=== PATIENT | male | born 1965 | race Caucasian/White ===

== ENCOUNTER → 2016-08-09 | Outpatient (CLI) | payer BC | LOC: GMA 11:52 | PROVIDERS: ATTEND Nurse Practitioner Acute Care | DX: E29.9 Testicular dysfunction, unspecified (principal); R53.83 Other fatigue ==

== ENCOUNTER → 2018-05-29 | Outpatient (CLI) | payer BC | LOC: GMAM 16:55 | PROVIDERS: ATTEND Family Medicine | DX: Z12.5 Encounter for screening for malignant neoplasm of prostate (principal) ==

== ENCOUNTER → 2018-09-19 | Outpatient (CLI) | payer BC | LOC: GMAM 10:31 | PROVIDERS: ATTEND Family Medicine | DX: E29.9 Testicular dysfunction, unspecified (principal) ==

== ENCOUNTER 2020-01-06 18:17 | Emergency (ER) | payer BC ==
[2020-01-06] MEDS ORDERED: GLUCAGON INJ 1 MG VIAL IV ONE (18:32)
[2020-01-06] MEDS ORDERED: SODIUM CHLORIDE 0.9% 500ML 500 ML IVS PRN (18:32)
[2020-01-06] MEDS ORDERED: ONDANSETRON INJ 4 MG/2 ML VIAL IV ONE (18:32)
--- NOTE | 2020-01-06 18:57 | ED.PDOC ---
History of Present Illness - General Time Seen by Provider: 01/06/20 18:31 Information Source: patient, RN notes reviewed, Vital Signs reviewed Exam Limitations: no limitations - History of Present Illness Initial Comments: This is a 54-year-old male with history of hypertension, type 2 diabetes, presenting to the emergency department for esophageal obstruction due to food bolus. He states he was eating steak around noon today and felt a piece of steak get stuck. He has been unable to pass any solids or liquids since that time. He denies any cough, shortness of breath, or choking episodes. He had a similar episode approximately 10 to 12 years ago and had to go to the GI lab. He denies any history of esophageal strictures. Review of Systems - Review of Systems Constitutional: Denies: chills, fever EENTM: Denies: tearing, ear pain, throat pain, mouth pain Respiratory: Denies: cough, orthopnea, short of breath, stridor Cardiology: Denies: chest pain, edema Gastrointestinal/Abdominal: Denies: constipation, diarrhea, nausea, vomiting Genitourinary: Denies: dysuria, hematuria Musculoskeletal: Denies: joint pain, muscle pain Neurological: Denies: headache, paresthesia Endocrine: States: no symptoms reported Hematologic/Lymphatic: States: no symptoms reported Past Medical History (General) - Patient Medical History Hx Seizures: No Hx Stroke: No Hx Dementia: No Hx Asthma: No Hx of COPD: No Hx Cardiac Disorders: No Hx Congestive Heart Failure: No Hx Pacemaker: No Hx Hypertension: Yes Hx Thyroid Disease: No Hx Diabetes: Yes Hx Gastroesophageal Reflux: No Hx Renal Disease: No Hx Cancer: No Hx of HIV: No Hx Hepatitis C: No Hx MRSA: No Surgical History: no surgical history - Vaccination History Hx Tetanus, Diphtheria Vaccination: No Hx Influenza Vaccination: No Hx Pneumococcal Vaccination: No Immunizations Up to Date: No - Social History Hx Tobacco Use: No Hx Chewing Tobacco Use: No Hx Alcohol Use: No Hx Substance Use: No Hx Substance Use Treatment: No Hx Depression: No Feels Threatened In Home Enviroment: No Feels Threatened In a Relationship: No Hx Physical Abuse: No Hx Emotional Abuse: No Hx Suspected Abuse: No - Female History Patient is a Female of Child Bearing Age (10 -59 yrs old): No Family Medical History - Family History Father Family History: Unknown Physical Exam - Physical Exam General Appearance: Alert, Comfortable, Well Developed, Well Groomed, Well Hydrated, Well Nourished, Other - Actively spitting saliva into emesis bag Eyes, Ears, Nose, Throat Exam: PERRL/EOMI, normal ENT inspection, pharynx normal Neck: non-tender, full range of motion, supple Respiratory: lungs clear, normal breath sounds, no respiratory distress, no accessory muscle use Cardiovascular/Chest: normal peripheral pulses, regular rate, rhythm, no edema, no gallop, no murmur Peripheral Pulses: No deficit Gastrointestinal/Abdominal: normal bowel sounds, non tender, soft Extremity: normal range of motion, non-tender, normal inspection Neurologic: no motor/sensory deficits, alert, normal mood/affect, oriented x 3 Skin Exam: normal color, warm/dry Progress - Progress Progress: 01/06/20 20:02 Rechecked. Patient reports persistent globus sensation, still unable to tolerate liquids despite multiple attempts in the emergency department. No improvement after nitroglycerin or glucagon 01/06/20 20:11 Discussed the case with Dr. Richardson, wood milling machine operator at [facility] in [place]. Agrees with plan for transfer, will see when he arrives there. 01/06/20 20:17 Patient was accepted as a transfer to the emergency department by Dr. Leung. Will be transferred by private vehicle (per patient request) to [facility]. DDX: Esophageal obstruction due to food bolus, esophageal stricture, diabetes MDM: Esophageal obstruction due to food bolus, onset approximately 8 hours ago. Unable to pass liquids, but seems to be tolerating secretions at this time. No airway issues at this time. Vital signs normal. No GI available at this time, patient will need urgent EGD, will transfer to [facility]. James Samayoa DO [facility] #[id number] - Results/Orders Results/Orders: 01/06/20 18:32 Sodium Chloride 0.9% 500Ml [NS 500ml] 500 ml IVS .QD 01/06/20 19:16 Sodium Chloride 0.9% 1000ML [Ns 1000 ml] 1,000 ml IVS ONCE Laboratory Results - last 24 hr 01/06/20 01/06/20 18:40 18:40 WBC 9.6 RBC 5.43 Hgb 17.2 Hct 49.1 MCV 90.5 MCH 31.6 H MCHC 34.9 RDW 13.2 Plt Count 245 MPV 8.6 Absolute Neuts (auto) 7.50 H Absolute Lymphs (auto) 1.40 Absolute Monos (auto) 0.40 Absolute Eos (auto) 0.30 Absolute Basos (auto) 0.10 Neutrophils % 78.0 Lymphocytes % 15.0 L Monocytes % 3.8 Eosinophils % 2.7 Basophils % 0.5 Sodium 141 Potassium 3.8 Chloride 103 Carbon Dioxide 28 Anion Gap 13.8 BUN 16 Creatinine 1.03 BUN/Creatinine Ratio 15.5 Random Glucose 161 H Serum Osmolality 285.9 Calcium 9.8 Departure - Departure Clinical Impression: Esophageal obstruction due to food impaction Time of Disposition: 20:19 Disposition: Transfer to Hospital Condition: Good Referrals: Ashkan Bradford MD [Primary Care Provider] - 1-2 Weeks
[2020-01-06] MEDS ORDERED: SODIUM CHLORIDE 0.9% 1000ML 500 ML IVS ONE (19:15)
[2020-01-06] MEDS ORDERED: SODIUM CHLORIDE 0.9% 1000ML 1,000 ML IVS ONE (19:16)
[2020-01-06] MEDS ORDERED: NITROGLYCERIN 0.4 MG 25 EA TAB SL ONE (19:16)
[2020-01-06 20:11] VITALS: BP 113/70; O2SAT 97
[2020-01-06 20:12] VITALS: TEMP 98.7
== END 2020-01-06 20:27 | disposition short-term general hospital (02) ==
LOC: ER 18:17
DX: T18.128A Food in esophagus causing other injury, initial encounter (principal); I10 Essential (primary) hypertension; E11.9 Type 2 diabetes mellitus without complications; Y92.9 Unspecified place or not applicable
CPT/HCPCS: 80048; 85025; J1610; J2405; J7030; J7040